=== PATIENT | female | born 1955 | race Caucasian/White ===

== ENCOUNTER → 2023-12-03 11:32 | Outpatient (REF) | payer OTHER, SELFPAY | LOC: RAD 11:32 | PROVIDERS: ATTENDING PHYSICIAN Family Medicine | DX: R31.0 Gross hematuria (principal); R10.9 Unspecified abdominal pain | CPT/HCPCS: 74176 ==

== ENCOUNTER → 2023-12-14 13:25 | Outpatient (REF) | payer OTHER, SELFPAY | LOC: HWWDC 13:25 | PROVIDERS: ATTENDING PHYSICIAN Nurse Practitioner | DX: Z12.31 Encounter for screening mammogram for malignant neoplasm of breast (principal) | CPT/HCPCS: 77063; 77067 ==

== ENCOUNTER → 2024-05-19 06:37 | Day surgery (SDC) | payer OTHER, SELFPAY ==
[2024-05-19 07:19] LABS: Glucose - Point of Care 117 mg/dl (70-99)
== END ==
LOC: GI 06:37
PROVIDERS: ATTENDING PHYSICIAN Internal Medicine
DX: Z12.11 Encounter for screening for malignant neoplasm of colon (principal); K63.5 Polyp of colon; K57.30 Diverticulosis of large intestine without perforation or abscess without bleeding; K62.89 Other specified diseases of anus and rectum; K64.4 Residual hemorrhoidal skin tags; K56.2 Volvulus; R93.3 Abnormal findings on diagnostic imaging of other parts of digestive tract; Z86.0100 Personal history of colon polyps, unspecified
CPT/HCPCS: 45385; 45380; 88305; 82962

== ENCOUNTER 2024-08-25 06:20 | Day surgery (SDC) | payer OTHER, SELFPAY ==
[2024-08-25 07:10] VITALS: BMI 26.9
[2024-08-25 07:15] VITALS: BP 153/75
[2024-08-25 07:24] VITALS: BMI 26.9
[2024-08-25 07:40] LABS: Glucose - Point of Care 103 mg/dl (70-99)
[2024-08-25 09:23] VITALS: BP 97/60
[2024-08-25 09:45] VITALS: BP 113/68
[2024-08-25 10:00] VITALS: BP 115/54
== END 2024-08-25 10:15 | disposition home or self-care (01) ==
LOC: SDS 06:20
PROVIDERS: ATTENDING PHYSICIAN Internal Medicine Gastroenterology
DX: K63.5 Polyp of colon (principal); K64.0 First degree hemorrhoids; K57.30 Diverticulosis of large intestine without perforation or abscess without bleeding; K63.89 Other specified diseases of intestine
CPT/HCPCS: 45385; 88305; 82962

== ENCOUNTER → 2025-01-29 09:32 | Outpatient (REF) | payer OTHER, SELFPAY | LOC: HWWDC 09:32 | PROVIDERS: ATTENDING PHYSICIAN Nurse Practitioner | DX: Z12.31 Encounter for screening mammogram for malignant neoplasm of breast (principal); M85.89 Other specified disorders of bone density and structure, multiple sites; M25.561 Pain in right knee | CPT/HCPCS: 73564; 77063; 77067; 77080 ==

== ENCOUNTER → 2025-03-08 12:09 | Outpatient (REF) | payer OTHER, SELFPAY | LOC: RAD 12:09 | PROVIDERS: ATTENDING PHYSICIAN Physician Assistant; FAMILY PHYSICIAN Nurse Practitioner | DX: E34.9 Endocrine disorder, unspecified (principal); E83.52 Hypercalcemia | CPT/HCPCS: 76536 ==

== ENCOUNTER → 2025-03-13 08:31 | Outpatient (REF) | payer OTHER, SELFPAY | LOC: RAD 08:31 | PROVIDERS: ATTENDING PHYSICIAN Physician Assistant; FAMILY PHYSICIAN Nurse Practitioner | DX: E34.9 Endocrine disorder, unspecified (principal); E83.52 Hypercalcemia | CPT/HCPCS: 78071; A9500 ==

== ENCOUNTER 2025-05-08 06:18 | Day surgery (SDC) | payer OTHER, SELFPAY ==
[2025-04-24 11:08] LABS: Hematocrit 45.0 % (37.0-47.0); Hemoglobin 15.1 g/dL (12.0-16.0); Mean Corp Hgb Conc. 33.6 g/dL (33.0-37.0); Mean Corpuscular Volume 90.4 fL (81.0-99.0); Platelet Count 279 10^3/uL (130-400); Red Cell Dist. Width 13.4 % (11.5-14.5)
[2025-04-24 11:28] LABS: APTT 27.9 Sec (23.4-35.0); INR 0.89; PT 12.4 Sec (11.4-14.6)
[2025-04-24 12:25] LABS: ALT (SGPT) 25 U/L (0-35); AST (SGOT) 28 U/L (14-36); Albumin 3.7 g/dl (3.5-5.0); Alkaline Phosphatase 101 U/L (38-126); Blood Urea Nitrogen 16 mg/dl (7-17); Calcium 9.7 mg/dl (8.4-10.2); Carbon Dioxide 30 mmol/L (22-30); Chloride 103 mmol/L (98-107); Glucose 102 mg/dl (70-99); Potassium 4.8 mmol/L (3.5-5.1); Sodium 139 mmol/L (135-145); Total Protein 6.1 g/dl (6.3-8.2); eGFR > 60.00
[2025-04-24 14:02] VITALS: BMI 26.3
[2025-05-08] VITALS (12 sets, daily range): BP systolic 101–140; BP diastolic 46–76; BMI 26.3
[2025-05-08] MEDS: NEURONTIN 300 MG PO (09:30)
[2025-05-08] MEDS: TYLENOL 1000 MG PO (09:30)
[2025-05-08] MEDS: NORMOSOL-R/PLASMALYTE-A 1000 IV (09:30)
[2025-05-08 10:26] LABS: Glucose - Point of Care 111 mg/dl (70-99)
[2025-05-08] MEDS: HEPARIN 5000 UNITS SC (11:10)
[2025-05-08 12:35] LABS: Turbo PTH 207.9 pg/ml (13.6-85.8)
[2025-05-08 13:13] LABS: Turbo PTH 200.8 pg/ml (13.6-85.8)
[2025-05-08 13:55] LABS: Turbo PTH 136.1 pg/ml (13.6-85.8)
[2025-05-08 14:30] LABS: Turbo PTH 14.9 pg/ml (13.6-85.8)
--- NOTE | 2025-05-08 15:07 | OR.RPT ---
Operative Report
Operative Report
Date of Operation: May 08, 2025
Preoperative Diagnosis: Parathyroid hyperparathyroidism - E210
Postoperative Diagnosis: Same
Surgeon: Jewel Mullins M.D.
Operation: Neck exploration, Left Superior and Right Inferior Parathyroidectomy - 07425
Anesthesia: GET
Estimated Blood Loss: 3 cc
Drains: None
Specimen: Right lower and left upper neck nodules, rule out parathyroid adenomas
Complications: None
Procedure:
The patient was taken to the operating room and placed in the usual supine position. After adequate general endotracheal anesthesia was established, the patient's neck was extended, prepped, and draped in the typical sterile fashion. A 4 cm
transcervical incision was made two fingerbreadths above the sternal notch. The skin incision was made with the #15 blade, and this was taken through the skin into the subcutaneous tissue. The underlying platysma muscle was divided, and subplatysmal
flaps were created superiorly to the thyroid cartilage and inferiorly to the sternal notch. Strap muscles were identified and at the midline.
Attention was turned to the patient's right side of the neck. The right thyroid lobe was mobilized medially. During this process, the right recurrent laryngeal nerve was identified and preserved throughout the surgery. The right lower neck nodule
was identified and noted to be enlarged, excised, and sent to the pathology department, which showed a hypercellular parathyroid gland. The normal-appearing right upper parathyroid gland was identified and preserved. The intraoperative PTH levels
failed to normalize.
Next, attention was turned to the left side of the neck. The left thyroid lobe was mobilized medially. During this process, the left recurrent laryngeal nerve was identified and preserved throughout the surgery. The left lower neck nodule was
identified and noted to be enlarged, excised, and sent to the pathology department, which showed a hypercellular parathyroid gland. The intraoperative PTH levels normalized.
After obtaining adequate hemostasis, the strap muscles were reapproximated with #3-0 Vicryl in a running fashion. The platysma muscle was reapproximated with #3-0 Vicryl in an interrupted fashion, and the skin was approximated with #4-0 Monocryl in
a running subcuticular fashion. The Steri-Strips and sterile dressings were placed. The patient tolerated the procedure well. The final instrument, needle, and sponge counts were correct. The patient was extubated and transferred to the PACU.
== END 2025-05-08 17:10 | disposition home or self-care (01) ==
LOC: SDS 06:18
PROVIDERS: ATTENDING PHYSICIAN Surgery; FAMILY PHYSICIAN Nurse Practitioner
DX: E21.0 Primary hyperparathyroidism (principal)
CPT/HCPCS: 60500; 36415; 80053; 82962; 83970; 85027; 85610; 85730; 88305; 88331; 93005